=== PATIENT | female | born 1950 | race African-American/Black ===

== ENCOUNTER 2020-02-19 22:02 | Inpatient (IN) | payer MEDICARE ==
[2020-02-20 01:17] VITALS: BMI 42.2
[2020-02-20] MEDS ORDERED: Dextrose 50% Abboject 50 ML SYRINGE SLOW IVP PRN (01:37)
[2020-02-20] MEDS ORDERED: Acetaminophen 325 MG TAB PO PRN (01:37)
[2020-02-20] MEDS ORDERED: Acetaminophen 650 MG Suppository PR PRN (01:37)
[2020-02-20] MEDS ORDERED: Senokot S 8.6-50 MG TAB PO PRN (01:37)
[2020-02-20] MEDS ORDERED: Dextrose 5% in Water 1,000 ML IV PRN (01:37)
[2020-02-20] MEDS ORDERED: Bisacodyl 5 MG TAB PO PRN (01:37)
[2020-02-20] MEDS ORDERED: Bisacodyl 10 MG SUPP PR PRN (01:37)
[2020-02-20] MEDS ORDERED: Calcium Carbonate 500 MG ChewTAB PO PRN (01:37)
--- NOTE | 2020-02-20 01:37 | PDOC.FPRHP ---
- History of Present Illness Chief Complaint: SOB History of Present Illness: Patient is a 69 yo female with PMHx of diabetes and hypertension who presents as a direct admission from [facility] ED. At that ED she presented with complaint of SOB and weakness. Symptoms started 6 days ago with fatigue, then had worsening SOB, dry cough, & generalized weakness over last 2-3 days and have progressively worsened today. She also she has not had much to eat or drink in last 2 days. During ED visit she developed an oxygen requirement of 2L N/C and was decided to call for admission for continued oxygen support. She tested positive for COVID 19 on February 16. ED Course: Prior to transfer patient received 1 Duoneb treatment, 6 mg IVP Dexamethasone (@ 1900), and ASA 324 mg. - Allergies/Adverse Reactions Allergies Allergy/AdvReac Type Severity Reaction Status Date / Time No Known Allergies Allergy Unverified 02/20/20 01:25 - History PMHX: DM, HTN FHx: DM, HTN, CAD, Lung Cancer (grandfather) PSHX: Hysterectomy, Knee surgery Social: Denies smoking, tobacco, or alcohol use - Review of Systems General: denies: fever/chills, fatigue Eyes: denies: eye pain, vision changes ENT: denies: nasal congestion, rhinorrhea Respiratory: reports: cough, shortness of breath Cardiovascular: denies: chest pain, palpitation Gastrointestinal: denies: nausea, vomiting, diarrhea, constipation, abdominal pain Skin: denies: rashes, lesions Musculoskeletal: denies: pain, tenderness Neurological: reports: weakness Psychological: denies: anxiety, depression - Vital signs BP: 120/81 HR: 89 RR: 18 Tmax: 98.7 Pox: 95% on 2L NC Wt: 115 kg - Physical Exam Constitutional: NAD, awake, alert and oriented HEENT: normocephalic and atraumatic, grossly normal vision, grossly normal hearing Neck: supple, FROM Heart: RRR, normal S1/S2, no murmurs/rubs/gallops -Lungs: rales and diminished breath sounds in BL LL Abdomen: soft, non-tender, bowel sounds present Musculoskeletal: normal structure, normal tone, ROM grossly normal -Musculoskeletal: 1+ edema BLE Neurological: no focal deficit, CN II-XII intact Skin: no rash/lesions, good turgor Heme/Lymphatic: no unusual bruising or bleeding Psychiatric: normal mood and affect, good judgment and insight, intact recent and remote memory FMR H&P: Results - Labs Result Diagrams: 02/20/20 05:53 02/20/20 05:53 Lab results: See visit from [place] ED 02/18 for full laboratory workup Troponin 0.020, BNP 21, LA 1.1, DDimer 0.65 - Radiology Interpretation Chest x-ray Additional comment: CXR: mild vascular congestion CT scan - chest Additional comment: CTA: No evidence of PE, bilateral ground glass opacities concerning for COVID FMR H&P: A/P - Plan Acute Hypoxic Respiratory Failure / COVID19 -confirmed covid 19 positive at [facility] clinic on 02/16, symptoms started 02/12 -CXR and CTA concerning for COVID, no PE -Troponin 0.020, BNP 21, LA 1.1, DDimer 0.65 - Will order Ferritin, Procal with AM labs -Intermittent O2 requirement, consider remdesivir/conv plasma in AM -Dexamethasone 6 mg PO daily -IVF LR @ 125 ml/hr Diabetes mellitus -hold home medications 2/2 poor PO intake: Toujeo (insulin glargine) 15-20 units? in AM, Metformin 500 mg daily -cover with mild SSI for now HTN -continue home medications: Labetalol 200 mg BID Gout -aware, controlled symptoms -continue home medications: Allopurinol 300 mg daily Arthritis -pain mostly in knees -continue home medications: Diclofenac 75 mg BID, Methotrexate 2.5 mg (5x/wk) GERD -continue home medications: Pantoprazole 30 mg daily HLD -continue home medications: Simvastatin 20 mg daily PCP-[facility] VTE ppx: Lovenox GI Ppx: Pantoprazole Code status: DNR-DNI Diet: CC Will need to med rec patient Dispo: Stable, admit to inpatient on medical unit. Anticipate LOS >48 hrs. FMR H&P: Upper Level - Plan Date/Time: 02/20/20 0136 Aleida Swift DO, PGY-2, have evaluated this patient and agree with findings/plan as outlined by audit intern resident. Pertinent changes/additions are listed here. Patient is a 69 yo female with PMHx of diabetes and hypertension who presents as a direct admission from [facility] ED. At that ED she presented with complaint of SOB and weakness. Symptoms started 6 days ago with fatigue, then had worsening SOB, dry cough, & generalized weakness over last 2-3 days and have progressively worsened today. She also she has not had much to eat or drink in last 2 days. During ED visit she developed an oxygen requirement of 2L N/C and was decided to call for admission for continued oxygen support. She tested positive for COVID 19 on February 16. Prior to transfer patient received 1 Duoneb treatment, 6 mg IVP Dexamethasone (@ 1900), and ASA 324 mg. PMHX: DM, HTN FHx: DM, HTN, CAD, Lung Cancer (grandfather) PSHX: Hysterectomy, Knee surgery Social: Denies smoking, tobacco, or alcohol use ROS: Denies fever, chills, fatigue, headache, dizziness, congestion, chest pain, palpitations, abdominal pain, nausea, vomiting, diarrhea, constipation, dysuria, mood changes. Endorses cough, weakness, SOB, decreased appetite. PE: NC/AT. EOMI. Rales and diminished breath sounds in bilateral lower lobes. No respiratory distress. RRR, no murmurs. Abdomen soft, nontender, BS+. Sensation intact. Motor strength 5/5 in extremities. 1+ edema in bilateral LE. A&O x 3. A/P: #Acute Hypoxic Respiratory Failure 2/2 COVID19 -confirmed covid 19 positive at PCP-[facility] clinic on 02/16, symptoms started 02/12 -CXR: borderline cardiomegaly and pulmonary vascular congestion -CTA chest: No evidence for PE. Peripheral areas of groundglass opacity, particularly in the upper lobes, right greater than left, suspicious for COVID pneumonia. -WBC 6.5, low suspicion for bacterial suprainfection at this time -Troponin 0.020, BNP 21, LA 1.1 -DDimer 0.65, will order additional COVID19 inflammatory markers including LDH, CRP, Ferritin, Procal -patient currently intermittently requiring oxygen, tolerating room air and then 2L N/C, will continue to watch patient overnight and if still consistent O2 requirement in the AM will order convalescent plasma and Remdesevir -Dexamethasone 6 mg PO daily -provide supportive IVF LR @ 125 ml/hr #Diabetes mellitus -Hold home medications with poor PO intake: Toujeo (insulin glargine) 15-20 units? in AM, Metformin 500 mg daily -cover with SSI until can confirm home meds #HTN -continue home medications: Labetalol 200 mg BID [facility] #Gout -aware, controlled symptoms -continue home medications: Allopurinol 300 mg daily #Arthritis -pain mostly in knees -continue home medications: Diclofenac 75 mg BID, Methotrexate 2.5 mg (5x/wk) #GERD -continue home medications: Pantoprazole 30 mg daily #HLD -continue home medications: Simvastatin 20 mg daily PCP-[facility] VTE: Lovenox GI Ppx: Pantoprazole Code status: DNR-DNI Dispo: Stable, admit to inpatient on medical unit. Anticipate LOS >48 hrs. Addendum - Attending - Attending Attestation Date/Time: 02/20/20 2406 I personally evaluated the patient and discussed the management with Dr. Mitchell/Fitz. I agree with the History, Examination, Assessment and Plan documented above with any addition or exceptions noted below. Patient here for symptomatic COVID infection. Her O2 sats are overall ok. CXR appears pretty well, only minor changes. She is on Decadron, holding Remdesevir given her lack of acute hypoxic resp failure. We will monitor O2 sats and see how she does. Possible discharge if no oxygen requirement, though she is certainly at risk for decompensation given her age, but no evidence for that at the current time.
[2020-02-20] MEDS ORDERED: HumaLOG 300 UNITS/3 ML VIAL SC PRN (01:41)
[2020-02-20] MEDS: Lactated Ringer's 1,000 ML IV SCH ×2 (02:00→08:14)
[2020-02-20] MEDS: HumaLOG 300 UNITS/3 ML VIAL SC PRN ×2 (06:09→13:14)
[2020-02-20 06:43] LABS: #Basophils 0.1 thou/uL (0.0-0.2); #Lymphocytes 0.8 thou/uL (1.20-3.40); #Monocytes 0.1 thou/uL (0.11-0.59); #Neutrophils 3.9 thou/uL (1.40-6.50); %Basophils 1.6 % (0.0-1.0); %Eosinophils 0.1 % (0.0-10.0); %Lymphocytes 15.3 % (21.0-51.0); %Monocytes 2.6 % (0.0-10.0); %Neutrophils 80.4 % (42.0-75.0); Hemoglobin 12.4 g/dL (12.0-16.0); Mean Corpuscular HGB CONC 32.5 g/dL (32.0-36.0); Mean Corpuscular Hemoglobin 29.1 pg (27.0-31.0); Mean Corpuscular Volume 89.6 fL (78.0-98.0); Mean Platelet Volume 9.2 fL (7.4-10.4); Platelet Count 169 thou/uL (130-400); Red Blood Cell (RBC) Count 4.25 mill/uL (4.20-5.40); White Blood Cell (WBC) Count 4.9 thou/uL (4.8-10.8)
[2020-02-20 06:58] LABS: ALT (SGPT) 19 U/L (8-55); AST (SGOT) 17 U/L (5-34); Albumin 3.8 g/dL (3.4-4.8); Alkaline Phosphatase 55 U/L (40-110); Anion Gap 18 mmol/L (10-20); BUN (Urea Nitrogen) 19 mg/dL (9.8-20.1); Bilirubin, Total 0.4 mg/dL (0.2-1.2); Calc. Creatinine Clearance 84 mL/min (70-130); Calcium 8.6 mg/dL (7.8-10.44); Carbon Dioxide 23 mmol/L (23-31); Chloride 104 mmol/L (98-107); Globulin 3.1 g/dL (2.4-3.5); Glucose 281 mg/dL (80-115); Potassium 4.4 mmol/L (3.5-5.1); Protein, Total 6.9 g/dL (6.0-8.3); Sodium 141 mmol/L (136-145)
[2020-02-20] MEDS ORDERED: Dexamethasone 4 MG TAB PO SCH (08:00)
[2020-02-20] MEDS ORDERED: Allopurinol 300 MG TAB PO SCH (09:00)
[2020-02-20] MEDS ORDERED: Labetalol 100 MG TAB PO SCH (09:00)
[2020-02-20] MEDS ORDERED: Enoxaparin Sodium 40 MG/0.4 ML SYRINGE SC SCH (09:00)
[2020-02-20] MEDS ORDERED: Methotrexate Sodium 2.5 MG TAB PO SCH (09:00)
[2020-02-20] MEDS ORDERED: Non-Formulary Item 1 EACH (Insulin Glargine,Hum.Rec.Anlog [Toujeo Max Solostar] 300 UNIT/ SQ ONE (11:25)
[2020-02-20] MEDS ORDERED: Insulin Glargine 20 UNITS in Pre-Filled Syringe 1 EACH SC SCH (12:30)
[2020-02-20 12:48] VITALS: BP 124/78; TEMP 97.2
[2020-02-20] MEDS ORDERED: Furosemide 40 MG TAB PO SCH (14:00)
[2020-02-20] MEDS ORDERED: Atorvastatin Calcium 10 MG TAB PO SCH (21:00)
[2020-02-20] MEDS ORDERED: Senokot S 8.6-50 MG TAB PO SCH (21:00)
[2020-02-21] MEDS ORDERED: Bisacodyl 5 MG TAB PO SCH (09:00)
--- NOTE | 2020-02-24 13:19 | DIS ---
DATE OF ADMISSION: 02/20/2020 DATE OF DISCHARGE: 02/20/2020 ADMITTING ATTENDING: Arron Hernández MD. DISCHARGE ATTENDING: Ángel Pascual MD CONSULTS: None. PROCEDURES: None. PRIMARY DIAGNOSIS: Coronavirus disease pneumonia. SECONDARY DIAGNOSES: 1. Type 2 diabetes mellitus. 2. Hypertension. 3. Gout. 4. Arthritis. 5. Gastroesophageal reflux disease. 6. Hyperlipidemia. DISCHARGE MEDICATIONS: 1. Acetaminophen 1000 mg p.o. p.r.n. 2. Dulera 2 puffs p.o. b.i.d. 3. Folic acid 1 mg p.o. daily. 4. Metformin 500 mg p.o. b.i.d. 5. Jardiance 10 mg p.o. daily. 6. Lasix 80 mg p.o. daily. 7. Labetalol 200 mg p.o. t.i.d. 8. Pantoprazole 40 mg p.o. daily. 9. Toujeo 12 units subcu q.a.m. 10. Ventolin HFA inhaler 2 puffs p.r.n. DISCONTINUED MEDICATIONS: None. HISTORY OF PRESENT ILLNESS: The patient is a 69-year-old female with a history of hypertension and diabetes, who was a direct admission from the [facility] ED on 02/20/2020. The patient presented with shortness of breath and weakness that began on 02/14/2020. The patient was diagnosed with COVID on 02/17/2020. In the ED, the patient was noted to be desatting and placed on 2 L nasal cannula. She was shortly weaned to room air. Chest x-ray was consistent with COVID pneumonia. CTA was completed and showed no pulmonary embolism. The patient received dexamethasone 6 mg p.o. with prescription to complete 5 day course. Her procal was 0.04, therefore no antibiotics were initiated. The patient did not meet requirements for remdesivir or plasma administration. She completed a walking test in the afternoon of 02/20/2020 without significant desaturation on room air. The patient was deemed stable for discharge home on 02/20/2020. Her home diclofenac was discontinued due to the associated risk of NSAIDs in COVID patients. DISPOSITION: Stable. DISCHARGE INSTRUCTIONS: 1. Location: Home. 2. Diet: Heart healthy consistent carb. 3. Activity as tolerated. 4. Followup with Dr. Cortes within 1 week. Job ID: [id number] MTDD
--- NOTE | 2020-02-24 14:18 | PQF ---
CLINICAL DOCUMENTATION CLARIFICATION FORM: Dear Dr. Dr. Chay Mitchell / Dr. Ángel Pascual Date: 02.24.20 Please exercise your independent, professional judgment in responding to the clarification form. Clinical indicators are provided on the bottom of this form for your review. Please check appropriate box(es): [ ] COVID -19 Pneumonia with Acute Hypoxic Respiratory Failure [ ] Acute Hypoxic Respiratory Failure w/o current COVID-19 Pneumonia [ X ] COVID-19 with Acute hypoxic Respiratory failure w/o Pneumonia [ ] Other: [ ] Unable to determine For continuity of documentation, please document condition throughout progress notes and discharge summary. Thank You. To be completed by CDI/Coding staff for physician review: CLINICAL INDICATORS - SIGNS / SYMPTOMS / LABS / RESULTS AND LOCATION IN EMR 1.15 H&P ([place]): *SOB and weakness * Tested positive for COVID 19 on February 16 * during ED visit she developed an oxygen requirement of 2L NC * CXR: MILD VASCULAR CONGESTION * CTA: ..BILATERAL GROUND GLASS OPACITIES CONCERNING FOR COVID RISKS / RESULTS AND LOCATION IN EMR 1.15 H&P ([place]): * PMH: DM: HTN; tested positive for COVI 19 TREATMENTS / RESULTS AND LOCATION IN EMR 1.15 H&P ([place]): * prior to transfer received 1 Duoneb tx, 6mg IVP Dexamethasone (@ 1900) * oxygen support * Will order Ferritin, Procal and AM labs * Inermittent O@ requirement, consider remdesivir/ Conv plasma in AM * Dexamethasone 6mg PO daily * IVF LLR @ 125 ml/hr CDS Signature: Ana Matias RN, CCDS Phone #: [phone] [email or web address] This is a permanent part of the Medical Record [facility]
== END 2020-02-20 17:57 | disposition home or self-care (01) | DRG 177 ==
LOC: T4-A 02-20 00:11
PROVIDERS: ADMIT Family Medicine; ATTEND Family Medicine
DX: U07.1 COVID-19 (principal); J96.01 Acute respiratory failure with hypoxia; E11.9 Type 2 diabetes mellitus without complications; I10 Essential (primary) hypertension; M10.9 Gout, unspecified; M17.0 Bilateral primary osteoarthritis of knee; K21.9 Gastro-esophageal reflux disease without esophagitis; E78.5 Hyperlipidemia, unspecified; Z90.710 Acquired absence of both cervix and uterus; R05 Cough
CPT/HCPCS: 36415; 36416; 80053; 82728; 84145; 85025; 87635; 99213; G0463; J1650; J1815; J8540; U0003